=== PATIENT | female | born 1990 | race Caucasian/White ===

== ENCOUNTER 2021-01-29 17:57 | Emergency (ER) | payer OTHER, SELFPAY ==
[2021-01-29 18:19] VITALS: BP 130/68; PULSE 72; RESP 16; TEMP 37.2; O2SAT 97; BMI 24.9
--- NOTE | 2021-01-29 18:24 | DI.RAD.S_ITS ---
PROCEDURE: XR TOE RT MIN 2V INDICATIONS: stubbed on door TECHNIQUE: 3 views of the right 5th toe(s) acquired. COMPARISON: None. FINDINGS: Bones: Displaced fracture of the 5th proximal phalange. Soft tissues: No suspicious soft tissue densities. IMPRESSION: 5th proximal phalange fracture. Dictated by: Martha Yoder MD, PhD on 01/29/2021 at 18:52 Approved by: Martha Yoder MD, PhD on 01/29/2021 at 18:53
--- NOTE | 2021-01-29 18:58 | ED_ITS ---
HPI - Extremity Injury (Lower) General Chief Complaint: Extremity Injury, Lower Stated Complaint: BROKE TOE Time Seen by Provider: 01/29/21 18:58 Source: patient Mode of arrival: Ambulatory Limitations: no limitations History of Present Illness HPI Narrative: This is a 30-year-old female who comes to the emergency department with complaint of injury to her right pinky toe. Patient was jumping over a laundry when she toe on the door. She hit her toe and her feet care became angulated. Patient denies any loss of sensation. She denies any other injury. Patient denies any other medical issues. She states it was quite painful earlier. It has been improved with an ice pack. Patient denies any allergies to medications. She denies any daily medications. She is process of establishing with a primary care physician. Related Data Previous Rx's Medication Instructions Recorded hydrocodone 5 mg-acetaminophen 325 1 tab PO QID PRN #5 tab 01/29/21 mg tablet Review of Systems Review of Systems ROS Unobtainable: All systems reviewed & are unremarkable except as noted in HPI and below Exam Narrative Exam Narrative: GENERAL: Alert and oriented x three, female in mild distress HEENT: Head normocephalic, atraumatic, EOMI, pupils reactive, face symmetric, moist mucous membranes NECK: Supple, full range of motion EXTREMITIES: Normal range of motion, no clubbing or edema. Neurovascularly intact. Patient's right 5th digit is angulated laterally. Neurovascularly intact cap refill less than 2 seconds. Tender over the toe. Patient does not any other bony tenderness in her foot. NEUROLOGICAL: Cranial nerves II through XII grossly intact. Moving all extremities SKIN: Warm, dry, no petechiae, no rashes or lesions. No ecchymosis. Initial Vital Signs Initial Vital Signs: Vital Signs Temperature 98.9 F 01/29/21 18:19 Pulse Rate 72 01/29/21 18:19 Respiratory Rate 16 01/29/21 18:19 Blood Pressure 130/68 01/29/21 18:19 Pulse Oximetry 97 01/29/21 18:19 Course Orders Ordered: Discontinued Medications Hydrocodone Bitart/Acetaminophen (Hydrocodone/Acet 5/325 Prepack) 1 bottle MISC SEEINSTR ONE Stop: 01/29/21 19:40 Last Admin: 01/29/21 19:54 Dose: 1 bottle Documented by: BALAJI Vital Signs Vital signs: Vital Signs - 8 hr 01/29/21 18:19 Temperature 98.9 F Pulse Rate 72 Respiratory Rate 16 Blood Pressure 130/68 Pulse Oximetry 97 MDM - Extremity Injury (Lower) Imaging Data Extremity x-ray #1: Radiologist's Impression: [address] [id number] ReportSigned Patient: Sri Romero LMR#: [id number]: 1990Acct:[id number]/Sex: 30 / FDate of Service: 01/29/21Loc: EDAccession Number: [id number] Procedure: XR toe RT min 2V Ordering Provider: Fawad Marcos D.O. PROCEDURE: XR TOE RT MIN 2V INDICATIONS: stubbed on door TECHNIQUE: 3 views of the right 5th toe(s) acquired. COMPARISON: None. FINDINGS: Bones: Displaced fracture of the 5th proximal phalange. Soft tissues: No suspicious soft tissue densities. IMPRESSION: 5th proximal phalange fracture. Dictated by: Martha Yoder MD, PhD on 01/29/2021 at 18:52 Approved by: Martha Yoder MD, PhD on 01/29/2021 at 18:53 [facility] Narrative Medical decision making narrative: 30-year-old female comes with complaint for injured toe of the left foot. Patient has a angulated fracture. Patient was moshe-taped to improve alignment. Ortho shoe and follow-up with orthopedic surgery given. Discussed with patient that may potentially require pain if is not healing appropriately. Discharge Plan Departure Patient Disposition: Home Clinical Impression: Closed fracture of fifth toe of left foot Instructions: DI for Toe Fracture Activity Restrictions/Additional Instructions: Follow up with your physician in the next week for recheck if you are not improving. If you cannot follow-up with anyone locally orthopedic surgery referral is included. You may take ibuprofen up to 800 mg every 8 hours as needed and/or Tylenol up to a 1000 mg every 8 hours. If this is an adequate for pain control. Take pain medications as prescribed. [facility] [place], [place] Splint Care: Keep splint clean and dry. Elevated affected body part to decrease swelling. OK to use ice pack on the affected body part. Use for 15-20 minutes each time, for 5-6x per day. If you develop worsening pain, numbness, tingling, discoloration of the affected body part, loosen the splint by loosening the LEILANI wrap, and either see your doctor for an urgent re-assessment, or return to the Emergency Department. Return to the Emergency Department for any new or worsening symptoms. Prescriptions: New hydrocodone-acetaminophen 5-325 mg tablet 1 tab PO QID PRN (Reason: pain) Qty: 5 RF: 0 Referrals: Esthela Nichols MD [Primary Care Provider] - Inderjit Fernandez MD [Physician] -
[2021-01-29] MEDS: HYDROCODONE/ACET 5/325 PREPACK 1 BOTTLE MISC (19:54)
[2021-01-29 20:03] VITALS: BP 121/74; PULSE 87; RESP 16; O2SAT 100
== END 2021-01-29 20:04 | disposition home or self-care (01) ==
PROVIDERS: Emergency Provider Emergency Medicine; PCP Internal Medicine
DX: S92.502A Displaced unspecified fracture of left lesser toe(s), initial encounter for closed fracture (principal); W22.8XXA Striking against or struck by other objects, initial encounter
CPT/HCPCS: 73660; 99281; 99283